=== PATIENT | female | born 1995 | race African-American/Black ===

== ENCOUNTER 2022-03-31 12:03 | Emergency (ER) | payer OTHER ==
[~2022-03-31] VITALS: Ht 172.7 cm; Wt 93.2 kg
[2022-03-31] MEDS ORDERED: ONDANSETRON HCL 4 MG/2 ML VIAL IVP ONE (15:30)
[2022-03-31] MEDS ORDERED: KETOROLAC TROMETHAMINE 30 MG/ML VIAL IVP ONE (15:30)
[2022-03-31] MEDS ORDERED: SODIUM CHLORIDE 0.9% 1,000 ML IV ONE (15:30)
[2022-03-31] MEDS ORDERED: ACETAMINOPHEN/CODEINE 300-30 MG TABLET PO ONE (15:30)
[2022-03-31 15:58] LABS: BASOPHILS % (AUTO) 0.6 % (0.0-2.0); EOSINOPHILS % (AUTO) 0.8 % (1.0-6.0); HEMOGLOBIN 12.5 g/dL (12.0-16.0); LYMPHOCYTES # (AUTO) 1.9 K/uL (1.0-4.8); LYMPHOCYTES % (AUTO) 30.3 % (22.0-44.0); MEAN CORPUSCULAR HEMOGLOBIN 29.8 pg (26.0-34.0); MEAN CORPUSCULAR HGB CONC 33.9 G/dL (31.0-37.0); MEAN CORPUSCULAR VOLUME 88 fL (80-100); MONOCYTES # (AUTO) 0.4 K/uL (0.1-1.0); MONOCYTES % (AUTO) 6.6 % (2.0-9.0); NEUTROPHILS # (AUTO) 3.9 K/uL (1.8-7.7); NEUTROPHILS % (AUTO) 61.7 % (40.0-70.0); PLATELET COUNT (AUTO) 259 K/uL (150-450); RED CELL DISTRIBUTION WIDTH 12.8 % (11.5-14.5)
[2022-03-31 16:08] LABS: ANION GAP 8 mmol/L (8-16); CALCIUM, TOTAL 8.7 mg/dL (8.8-10.5); CARBON DIOXIDE 24 mmol/L (22-29); CHLORIDE 100 mmol/L (98-107); CREATININE 0.75 mg/dL (0.60-1.30); GLUCOSE,RANDOM 83 mg/dL (70-110); POTASSIUM 4.1 mmol/L (3.5-5.1); SODIUM SERUM 132 mmol/L (136-145); UREA NITROGEN, BLOOD 5 mg/dL (7-18)
[2022-03-31 16:09] LABS: GLOMERULAR FILTR. RATE CALC > 60 mL/min (>60)
[2022-03-31 16:14] LABS: ALANINE AMINOTRANSFERASE 12 U/L (12-78); ALKALINE PHOSPHATASE 39 U/L (46-116); ASPARTATE AMINOTRANSFERASE 15 U/L (15-37); BILIRUBIN,TOTAL 0.3 mg/dL (0.1-1.0); TOTAL PROTEIN, SERUM 6.6 g/dL (6.4-8.2)
[2022-03-31] MEDS ORDERED: ONDA-104 PO (17:04)
[2022-03-31] MEDS ORDERED: ACET-66 PO (17:04)
[2022-03-31 17:06] VITALS: BP 112/77
== END 2022-03-31 17:18 | disposition home or self-care (01) ==
LOC: EMS 12:09
DX: O26.892 Other specified pregnancy related conditions, second trimester (principal); G44.209 Tension-type headache, unspecified, not intractable; O26.93 Pregnancy related conditions, unspecified, third trimester; Z3A.00 Weeks of gestation of pregnancy not specified
CPT/HCPCS: 99284; 96374; 96361; 96375; 80053; 85025; 36415; J1885; J2405; J7030